=== PATIENT | female | born 2000 | race Caucasian/White ===

== ENCOUNTER 2023-10-28 09:15 | Inpatient (IN) | payer BC ==
[~2023-10-28] VITALS: Ht 154.9 cm; Wt 90.9 kg
[2023-10-31] MEDS ORDERED: PRENATA1 CTB PO (11:51)
[2023-11-04] VITALS (50 sets, daily range): BP systolic 113–156; BP diastolic 68–115; PULSE 10–103; TEMP 98–98.5
[2023-11-04] MEDS ORDERED: LR 1,000 ML IV SCH (07:45)
[2023-11-04] MEDS ORDERED: LR & Oxytocin 500 ML IV SCH (07:45)
--- NOTE | 2023-11-04 09:00 | NUR ---
PITOCIN NOT CHANGED DUE TO REGULAR CONTRACTIONS WITHIN 2-4 MIN LASTING 60-110SEC
--- NOTE | 2023-11-04 09:45 | NUR ---
PITOCIN NOT CHANGED DUE TO REGULAR CTX AND CERVICAL CHANGE
[2023-11-04 09:59] LABS: BASO % 0.5 % (0.0-2.0); EOS # 0.1 K/mm3 (0.0-0.7); EOS % 1.6 % (0.0-4.0); GRAN # 6.3 K/mm3 (1.4-6.5); GRAN % 74.2 % (42.2-75.2); HEMOGLOBIN 11.6 g/dl (12.5-16.0); LYMPH # 1.3 K/mm3 (1.2-3.4); LYMPH % 15.5 % (20.0-51.0); MEAN CELL VOLUME 83 fl (80.0-100.0); MEAN CORPUSCULAR HEMOGLOBIN 27 pg (27-31); MEAN CORPUSCULAR HGB CONC 33 g/dl (33.0-37.0); MEAN PLATELET VOLUME 12.3 fl (7.4-10.4); MONO # 0.7 K/mm3 (0.1-0.6); PLATELET COUNT 195 K/mm3 (130-400); RED BLOOD COUNT 4.24 M/mm3 (4.10-5.30); REDCELL DISTRIBUTION WIDTH-CV 12.5 % (11.5-14.5)
--- NOTE | 2023-11-04 10:15 | NUR ---
PITOCIN NOT INCREASED DUE TO MATERNAL NAUSEA
--- NOTE | 2023-11-04 11:15 | NUR ---
UNABLE TO TRACE MATERNAL VS AND FHR DUE TO MATERNAL HABITUS AND POSITION, THIS RN AT BEDSIDE ATTEMPTING TO TRACE FHR. PT AWAKE AND ALERT X3, RELAXED SITTING UPRIGHT ON BIRTHING BALL. SPOUSE SUPPORTIVE AT BEDSIDE.
--- NOTE | 2023-11-04 11:45 | NUR ---
UNABLE TO TRACE EFM, TOCO, AND MATERNAL VS DUE TO PT AMBULATING TO BATHROOM. THIS RN ASSISTS PT TO BATHROOM SEEING PT AWAKE AND ALERT X3. PT BACK TO BED AND ON MONITOR AT 1145.
[2023-11-04] MEDS ORDERED: ROPivacaine PF 0.2% 200 ML IV ONE (12:42)
[2023-11-04] MEDS ORDERED: Ondansetron 4 MG/2 ML VIAL IV PRN ×2 (13:30→17:15)
[2023-11-04] MEDS ORDERED: diphenhydrAMINE 25 MG CAP PO PRN (13:30)
[2023-11-04] MEDS ORDERED: ePHEDrine 50 MG/10 ML VIAL IV PRN (13:30)
[2023-11-04] MEDS ORDERED: Naloxone 0.4 MG/ML VIAL IV PRN ×2 (13:30→17:15)
[2023-11-04] MEDS ORDERED: diphenhydrAMINE 50 MG/ML 1 ML VIAL IV PRN (13:30)
--- NOTE | 2023-11-04 15:17 | NUR ---
PITOCIN NOT CHANGED DUE TO REGULAR CTX AND CERVICAL CHANGE
--- NOTE | 2023-11-04 15:35 | NUR ---
1532 THIS RN AT PT BEDSIDE ATTEMPTING TO TRACE FHR. CHANGED PT POSITION TO RIGHT LATERAL DUE TO AUDIBLE LATE DECEL, PT VS STABLE, SPOUSE SUPPORTIVE AT BEDSIDE. 1550 WITH THIS RN AT BEDSIDE ASSISTING IN CHANGING PT POSITION. SVE /0 PER , THIS RN ATTEMPTING TO ACCURATELY TRACE FHR. CHANGED PT POSITION TO LEFT LATERAL. 1600 THIS RN NOTIFIES [facility] CHARGE NURSE TO COME ASSIST IN LABOR ROOM. VERBAL ORDER TO CHANGE PITOCIN FROM 18ML/HR TO 10ML/HR. 1605 VERBAL ORDER PER TO TURN PITOCIN OFF DUE TO PROLONGED LATE DECEL FHR AUDIBLE IN 60'S. DISCUSSES OPTION WITH PT AND SPOUSE. 1610 PT IN HANDS AND KNEES POSITION TO ATTEMPT TO RECOVER PROLONGED DECEL. PT AND PT SPOUSE DECIDE ON PROCEDURE. PT AND SPOUSE PREPAIRED FOR OR, NURSERY NURSE NOTIFIED, CHARGE NURSE NOTIFIED, DONAVON FLOOD NOTIFIED, AND UNIT TECH PCW.ORI NOTIFIED. 1620 PT TRANSPORTED VIA BED TO OR
[2023-11-04] MEDS ORDERED: Midazolam 2 MG/2 ML VIAL ONE (16:35)
[2023-11-04] MEDS ORDERED: fentaNYL 50 MCG/ML 5 ML VIAL ONE (16:35)
[2023-11-04] MEDS ORDERED: Tranexamic Acid 1,000 MG/10 ML VIAL ONE (16:39)
[2023-11-04] MEDS ORDERED: fentaNYL 50 MCG/ML 2 ML VIAL ONE (16:41)
[2023-11-04] MEDS ORDERED: Ketorolac 30 MG/ML VIAL ONE (16:41)
[2023-11-04] MEDS ORDERED: Ondansetron 4 MG/2 ML VIAL ONE (16:42)
[2023-11-04] MEDS ORDERED: dexAMETHasone 10 MG/ML VIAL ONE (17:03)
[2023-11-04] MEDS ORDERED: NS 10 ML IV ONE (17:03)
[2023-11-04] MEDS ORDERED: Magnes Hydrox (MOM) 80 MG/ML 30 ML CUP PO PRN (17:15)
[2023-11-04] MEDS ORDERED: Acetaminophen 500 MG TAB PO PRN (17:15)
[2023-11-04] MEDS ORDERED: Loratadine 10 MG TAB PO PRN (17:15)
[2023-11-04] MEDS ORDERED: Measles/Mumps/Rubella Virus Vaccine Live w Diluent 0.5 ML VIAL SQ SCH (17:15)
[2023-11-04] MEDS ORDERED: oxyCODONE 5 MG TAB PO PRN (17:15)
[2023-11-04] MEDS ORDERED: LR 1,000 ML IV PRN (17:15)
[2023-11-04] MEDS ORDERED: Azithromycin 500 MG in NS 250 ML IV ONE (17:30)
[2023-11-04] MEDS ORDERED: Loperamide 2 MG CAP PO ONE (17:45)
--- NOTE | 2023-11-04 18:45 | NUR ---
1845 O2 ON PER NC AT 2L/MIN. O2 SAT 100%. O2 OFF AND O2 SAT 97%. SLEEPY BUT AWAKENS EASILY. IV INFUSING AND IVPB INFUSING. BALL DRAINING. SCDS ON. TYLENOL AND OXYCODONE PO GIVEN FOR INC PAIN. FAMILY AT BEDSIDE.
[2023-11-04] MEDS ORDERED: Succinylcholine PF 200 MG/10 ML SYRINGE IV ONE (19:21)
--- NOTE | 2023-11-04 19:45 | NUR ---
194 PERICARE DONE. MOVES WELL IN BED. ABD BINDER ON. REGULAR DIET TAKEN. VISITORS IN ROOM.
[2023-11-04] MEDS ORDERED: traZODone 50 MG TAB PO PRN (21:00)
[2023-11-04] MEDS ORDERED: Ibuprofen 800 MG TAB PO SCH (23:14)
[2023-11-05] VITALS: BP 135/72; BP 35/72; PULSE 70; TEMP 98.7
[2023-11-05 03:16] VITALS: BP 134/74; PULSE 66; TEMP 97.9
[2023-11-05] MEDS ORDERED: PERCOCET 325 MG1 TA2 PO (06:30)
[2023-11-05] MEDS ORDERED: MOTRIN 800800 MG/TAB PO (06:30)
[2023-11-05 07:50] VITALS: BP 130/73; PULSE 67; TEMP 98.2
[2023-11-05] MEDS ORDERED: Sennosides/Docusate 8.6-50 MG TAB PO SCH (08:00)
--- NOTE | 2023-11-05 09:48 | NUR ---
Initial visit; Parents thanked Operations Research Scientist for offering congratualtions and God's blessings for the of their son. Operations Research Scientist thanked family for choosing [facility] and mentioned if they would like to have their son "Blessed" Operations Research Scientist is available to do so. Both thanked Operations Research Scientist.
[2023-11-05 17:00] VITALS: BP 137/84; PULSE 70; TEMP 98.4
[2023-11-05 20:00] VITALS: BP 110/62; PULSE 75; TEMP 97.8
[2023-11-06 08:33] VITALS: BP 139/77; PULSE 66
[2023-11-06 16:00] VITALS: BP 145/76; PULSE 92; TEMP 98.2
[2023-11-06 16:30] VITALS: BP 135/68
[2023-11-06 22:01] VITALS: BP 134/74; PULSE 71; TEMP 98.4
[2023-11-07 08:00] VITALS: BP 141/84; PULSE 105; TEMP 98
--- NOTE | 2023-11-07 10:15 | NUR ---
NB STRAPPED INTO CARSEAT, PT AMBULATORY WITH SPOUSE TO CAR. CARSEAT CLICKED INTO BASE. PT STABLE.
== END 2023-11-07 10:15 | disposition home or self-care (01) | DRG 788 ==
LOC: EDBD → OB → LDR 11-04 06:44 → OB 11-04 08:29
PROVIDERS: ADMIT Obstetrics & Gynecology
PROC: 10D00Z1 Extraction of Products of Conception, Low, Open Approach (ICD-10-PCS; principal; 2023-11-04)
PROC: 10907ZC Drainage of Amniotic Fluid, Therapeutic from Products of Conception, Via Natural or Artificial Opening (ICD-10-PCS; 2023-11-04)
PROC: 3E033VJ Introduction of Other Hormone into Peripheral Vein, Percutaneous Approach (ICD-10-PCS; 2023-11-04)
DX: O13.4 Gestational [pregnancy-induced] hypertension without significant proteinuria, complicating childbirth (principal); Z37.0 Single live birth; O76 Abnormality in fetal heart rate and rhythm complicating labor and delivery; O75.89 Other specified complications of labor and delivery; O99.213 Obesity complicating pregnancy, third trimester; O69.1XX0 Labor and delivery complicated by cord around neck, with compression, not applicable or unspecified; Z3A.38 38 weeks gestation of pregnancy; Z86.16 Personal history of COVID-19
CPT/HCPCS: J0456; J0665; J1100; J1885; J2250; J2405; J2704; J2795; J3010; J7050; J7120